=== PATIENT | female | born 1940 | race Caucasian/White ===

== ENCOUNTER 2022-12-08 16:51 | Emergency (ER) | payer MEDICARE, SELFPAY ==
--- NOTE | ~2022-12-08 | CT_ITS ---
EXAMINATION: CT cervical spine wo con DATE: 12/08/2022 18:16 INDICATION: Head injury TECHNIQUE: Computed tomography (CT) of the cervical spine was performed without intravenous contrast. The dose-length product (DLP) was 130.01 mGy-cm. Automated exposure control and iterative reconstruc tion technique were employed. COMPARISON: None FINDINGS: Bone alignment is normal. There is no fracture. The vertebral body heights are maintained. There is mild loss of intervertebral disc space height throughout the cervical spine. The odontoid pr ocess is intact. The prevertebral soft tissues are normal. Small degenerative osteophytes project fro m the anterior endplates of multiple vertebral bodies. 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 IMPRESSION: 1. Mild cervical spondylosis without acute findings. Reviewed, dictated and finalized at location F.
--- NOTE | ~2022-12-08 | XR_ITS ---
EXAMINATION: XR knee RT 3V DATE: 12/08/2022 17:58 INDICATION: Right knee pain TECHNIQUE: Four views of the right knee were obtained. COMPARISON: None. FINDINGS: Alignment is normal. No fracture or osteochondral lesion. There is mild tricompartmental os teoarthritis characterized by tiny marginal osteophytes. No joint effusion/synovitis. Soft tissues a re unremarkable. IMPRESSION: 1. No acute osseous abnormality. Reviewed, dictated and finalized at location F.
--- NOTE | ~2022-12-08 | CT_ITS ---
EXAMINATION: CT brain wo con INDICATION: Head injury COMPARISON: None TECHNIQUE: Standard unenhanced head CT. The dose-length product (DLP) was 605.33 mGy-cm. The mA was a djusted according to patient size. Iterative reconstruction technique was employed. FINDINGS: There is no acute intraparenchymal hemorrhage. No evidence of mass lesion. No evidence of a cute infarction. There is mild periventricular and subcortical hypodensity probably related to small vessel ischemic disease. There is mild prominence of the sulci and ventricles related to cerebral atr ophy. Intracranial calcified cerebral atherosclerosis is noted. There are no extra-axial collections. There is no mass effect or midline shift. Changes in the globes are likely from ocular lens surgery. The visualized sinuses and mastoid air cells are well aerated. There is marked hyperostosis of the s kull. IMPRESSION: 1. No acute intracranial abnormality. 2. Age related findings. Reviewed, dictated and finalized at location F.
--- NOTE | ~2022-12-08 | XR_ITS ---
EXAMINATION: XR wrist LT min 3V DATE: 12/08/2022 17:58 INDICATION: Left wrist pain TECHNIQUE: Posteroanterior, ulnar deviation, oblique, and lateral views of the left wrist were obtain ed. 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 There is no fracture. There is medial soft tissue swelling of the wrist. IMPRESSION: 1. Soft tissue swelling without acute osseous abnormality. Reviewed, dictated and finalized at location F.
[2022-12-08 16:54] VITALS: BP 165/84; PULSE 84; RESP 18; TEMP 36.8; O2SAT 100
--- NOTE | 2022-12-08 17:43 | ED.FALL ---
HPI - Fall General Chief Complaint: Fall Stated Complaint: fall, knee, wrist Time Seen by Provider: 12/08/22 17:18 History of Present Illness HPI Narrative: Patient is a 82-year-old female here for evaluation after a fall 8 hours ago. Patient states that she was walking to [place] when she believes her right foot got caught on the curb, causing her to fall onto her left side. She did hit her head but did not lose consciousness. Since the fall she has had pain in her left wrist, headache, right knee pain. She has attempted topical cream but no medicine for her symptoms. She does not take any medicines on a daily basis. She denies any preceding chest pain, lightheadedness, shortness of breath, headache or dizziness prior to the fall. Related Data Allergies Allergy/AdvReac Type Severity Reaction Status Date / Time codeine Allergy Other Verified 12/08/22 17:02 prednisone Allergy Redness of Verified 12/08/22 17:02 Skin Review of Systems Review of Systems: Gen: Denies fevers or chills Eyes: Denies eye pain or visual change ENT: Denies congestion Respiratory: Denies shortness of breath or cough CV: Denies chest pain or palpitations GI: Denies abdominal pain nausea, emesis or diarrhea : denies burning, urgency, frequency or hematuria Musculoskeletal: Reports right knee pain, left wrist pain Neuro: Denies numbness, tingling, weakness or focal weakness Skin: Denies rash Except as documented, all other systems reviewed and negative Exam Narrative: APPEARANCE: Well appearing, no pain in distress, well-nourished. Head: No obvious signs of head trauma on exam. EYES: PERRLA/EOMI, conjunctivae clear. Few beats of fatigable horizontal nystagmus with EOMs. NOSE: No nasal drainage EARS: Hearing aid in place to left ear. External ear normal in appearance, TMs clear bilaterally THROAT: Oropharynx is clear. Mucous membranes are moist. NECK: Supple. No adenopathy, no masses. RESPIRATORY: Airway patent, respirations nonlabored. Clear to auscultation bilaterally, no rales, rhonchi, wheezing. CARDIOVASCULAR: 2+ DP and PT pulses bilaterally. 2+ radial pulses bilaterally. Regular rate and rhythm without murmurs, rubs, or gallops. ABDOMINAL: Normoactive bowel sounds. Soft, nontender, nondistended. No rebound tenderness or guarding. MUSCULOSKELETAL: There is a 2 x 3 area of ecchymosis to the left distal radius that is tender to palpation. Pain is elicited in this region with flexion of the thumb. No pain with range of motion of digits 2 through 5. There is no snuffbox tenderness. No bony tenderness to palpation along the right upper extremity, bilateral hips, C, T or L-spine. NEURO: Normal speech. No focal neurologic deficits. SKIN: There are superficial abrasions to the bilateral knees, there is soft tissue swelling and bruising to the left distal radius PSYCHIATRIC: Normal affect/mood. Course Vital Signs Vital signs: Vital Signs Temperature 98.3 F 12/08/22 16:54 Pulse Rate 84 12/08/22 16:54 Respiratory Rate 18 12/08/22 16:54 Blood Pressure 165/84 H 12/08/22 16:54 Pulse Oximetry 100 12/08/22 16:54 Oxygen Delivery Room Air 12/08/22 16:54 Temperature 98.3 F 12/08/22 16:54 Pulse Rate 84 12/08/22 16:54 Respiratory Rate 18 12/08/22 16:54 Blood Pressure 165/84 H 12/08/22 16:54 Pulse Oximetry 100 12/08/22 16:54 Oxygen Delivery Room Air 12/08/22 16:54 MDM - Fall MDM Narrative Medical decision making narrative: 82-year-old female here for evaluation after what sounds like mechanical fall while walking to [place] this morning. Complaining of right knee pain, left wrist pain since the accident. She has been able to walk, did hit her head but denies loss of consciousness. She was in her usual state of health prior to the fall, dizziness, chest pain, shortness of breath. She has several abrasions to her knees, bruising to her left wrist, bony tenderness to palpation along the right patella
[2022-12-08] MEDS: ACETAMINOPHEN 325 MG TABLET 650 MG PO (18:55)
[2022-12-08] MEDS: traMADol HCL (*CRX) 25 MG TABLET PO (19:12)
== END 2022-12-08 20:05 | disposition home or self-care (01) ==
PROVIDERS: Emergency Provider Physician Assistant
DX: S69.92XA Unspecified injury of left wrist, hand and finger(s), initial encounter (principal); S83.91XA Sprain of unspecified site of right knee, initial encounter; W01.0XXA Fall on same level from slipping, tripping and stumbling without subsequent striking against object, initial encounter
CPT/HCPCS: 70450; 72125; 73110; 73562; 99284; A9270